=== PATIENT | male | born 1930 | race Caucasian/White ===

== ENCOUNTER 2016-10-12 13:43 | Day surgery (SDC) | payer MEDICARE, BC ==
[2016-10-12 14:13] VITALS: BP 161/95; PULSE 63; RESP 20; TEMP 98.1; O2SAT 97
[2016-10-12] MEDS ORDERED: LOSA100T2 PO (14:34)
[2016-10-12] MEDS ORDERED: TAMS5CAP PO (14:34)
[2016-10-12] MEDS ORDERED: ATEN25TA PO (14:34)
[2016-10-12] MEDS ORDERED: DEXI60CA PO (14:34)
[2016-10-12] MEDS ORDERED: ASPI81CH37 CHEW (14:34)
[2016-10-12] MEDS ORDERED: TRIAMCINOLONE ACETONIDE 40 MG/ML VIAL ONE ×2 (15:18→15:31)
[2016-10-12 15:45] VITALS: BP 185/87; PULSE 85; RESP 20; O2SAT 97
[2016-10-12] MEDS ORDERED: IOHEXOL 300 MG/ML 50 ML BTL (for RAD DIAG) ONE (15:49)
[2016-10-12 16:05] VITALS: BP 188/79; PULSE 85; RESP 20; O2SAT 97
--- NOTE | 2016-10-13 10:51 | RADRPT ---
EXAM DATE/TIME: 10/12/2016 15:27 [facility] COMPARISON: NERVE ROOT INJ, LUMB, INIT LVL,RT, October 12, 2016, 15:27. INDICATIONS : Patient with a history of right hip and back pain. MEDICAL HISTORY : HTN SURGICAL HISTORY : Back surgery ENCOUNTER: Initial ACUITY: >1 year PAIN SCORE: 9/10 LOCATION: Right Hip FLUORO TIME: 4.15 minutes IMAGE SERIES: 1 CONTRAST: 1 cc Omnipaque (iohexol) 300 ACCESS LEVEL: Right L5 MEDICATIONS: 1.) 40 mg triamcinolone (Kenalog) IA 2.) 1 cc Lidocaine IA RESPONSE: Pre procedure pain level was 9/10. Post procedure pain level was 5/10. PROCEDURE : 1. Fluoroscopically guided nerve root injection. The risks, benefits and alternatives to the procedure were explained and verbal and written consent w as obtained. The site was prepped in sterile fashion. Full sterile technique was used, including ca p, mask, sterile gloves and gown and a large sterile sheet. Hand hygiene and 2% chlorhexidine and/or betadine/alcohol prep was utilized per protocol for cutaneous antisepsis. The skin and subcutaneous tissues were infiltrated with local anesthetic solution. With fluoroscopic guidance the targeted nerve root was localized and positive contrast was injected t o confirm epidural spread. Following this the prescribed medication was injected surrounding the ner ve root sleeve. The patient's preprocedure pain and post procedure pain levels were recorded. Of note, I reviewed the patient's outside MRI. This does show a disc at L4-5, eccentric to the right but I do not believe there is compromise of the right L4 nerve root on that 2016 exam. There is some impingement on the nerve rootlets of L5 at one level below, however. Since the L4 injection did not r eproduce the patient's clinical symptoms (although, it did result in significant radicular-type pain radiating down the right leg along the L4 dermatome), L5 injection was performed as well. CONCLUSION: Uncomplicated fluoroscopically guided nerve root injection as above. Markel Melendez MD on October 13, 2016 at 10:30 Board Certified Radiologist. This report was verified electronically.
--- NOTE | 2016-10-13 10:53 | RADRPT ---
EXAM DATE/TIME: 10/12/2016 15:27 [facility] COMPARISON: No previous studies available for comparison. INDICATIONS : Patient with a history of right back and hip pain. MEDICAL HISTORY : HTN SURGICAL HISTORY : Back surgery ENCOUNTER: Initial ACUITY: >1 year PAIN SCORE: 9/10 LOCATION: Right Hip FLUORO TIME: 4.15 minutes IMAGE SERIES: 1 CONTRAST: 1 cc Omnipaque (iohexol) 300 ACCESS LEVEL: Right L4 MEDICATIONS: 1.) 40 mg triamcinolone (Kenalog) IA 2.) 1 cc Lidocaine IA RESPONSE: Pre procedure pain level was 9/10. Post procedure pain level was 9/10. PROCEDURE : 1. Fluoroscopically guided nerve root injection. The risks, benefits and alternatives to the procedure were explained and verbal and written consent w as obtained. The site was prepped in sterile fashion. Full sterile technique was used, including ca p, mask, sterile gloves and gown and a large sterile sheet. Hand hygiene and 2% chlorhexidine and/or betadine/alcohol prep was utilized per protocol for cutaneous antisepsis. The skin and subcutaneous tissues were infiltrated with local anesthetic solution. With fluoroscopic guidance the targeted nerve root was localized and positive contrast was injected t o confirm epidural spread. Following this the prescribed medication was injected surrounding the ner ve root sleeve. The patient's preprocedure pain and post procedure pain levels were recorded. Tiana gutierrez note, the requested L4 nerve root injection did not reproduce or relieve patient's clinical symptom s. Patient did experience radicular type pain along the L4 dermatome during injection confirming appr opriate epidural positioning of the needle. Patient's outside 2016 MRI was reviewed which shows a dis c at L4-5, eccentric to the right. I do not see compromise of the right L4 nerve root but there may b e some irritation of the nerve rootlets of L5 one level below. As such, L5 nerve root injection will be performed as well. CONCLUSION: Uncomplicated fluoroscopically guided nerve root injection as above. . Markel Melendez MD on October 13, 2016 at 10:49 Board Certified Radiologist. This report was verified electronically.
== END 2016-10-12 16:15 | disposition home or self-care (01) ==
LOC: HROP 13:43 → HRIP 13:44 → HROP 16:15
PROVIDERS: ATTEND Physical Medicine & Rehabilitation
DX: M54.5 Low back pain (principal); M25.551 Pain in right hip; I10 Essential (primary) hypertension
CPT/HCPCS: 64483; 64484; J3301; Q9967